=== PATIENT | male | born 1955 | race Hispanic/Latino ===

== ENCOUNTER 2017-05-05 09:58 | Day surgery (SDC) | payer BC ==
[2017-01-10 21:57] VITALS: BMI 28.1
[2017-05-04 11:24] VITALS: RESP 20
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
[2017-05-05] MEDS ORDERED: Phenylephrine 10 mg/ml Inj ONE (10:56)
[2017-05-05] MEDS ORDERED: Propofol 10 mg/ml Inj (20 ML) ONE ×2 (11:16→13:06)
[2017-05-05] MEDS ORDERED: Succinylcholine 200 mg/10 ml Inj IV ONE (11:16)
[2017-05-05] MEDS ORDERED: Ropivacaine 0.5% 30ML IV ONE (12:04)
[2017-05-05] MEDS ORDERED: Midazolam 2 MG/2 ML VIAL ONE (12:05)
[2017-05-05] MEDS ORDERED: Lidocaine 1% Inj (20ml) ONE ×2 (12:17→15:48)
[2017-05-05] MEDS ORDERED: Bupivacaine 0.5% Inj(30mL) ONE (12:17)
[2017-05-05] MEDS ORDERED: Lactated Ringer's 1,000 ML IV ONE ×3 (12:32→16:15)
[2017-05-05] MEDS ORDERED: ePHEDrine 50 mg/ml Inj ONE (12:57)
[2017-05-05] MEDS ORDERED: Bupivacaine 0.5% 50 ML IJ ONE (14:40)
[2017-05-05] MEDS ORDERED: Oxycodone/Acetaminophen 5/325 mg Tab PO PRN ×2 (15:30)
[2017-05-05] MEDS ORDERED: HYDROmorphone 0.5 mg/0.5 ml ISec IVP PRN (15:32)
--- NOTE | 2017-05-05 15:38 | PCM.SURG1 ---
Surgeon's Initial Post Op Note - Surgeon's Notes Surgeon: Dr. Traore Hammer Smith: Dr. Baxter, Dr. Willis, Dr. Daniel Type of Anesthesia: General LMA, Local Anesthesia Administered By: Dr. Tamez Pre-Operative Diagnosis: left achilles rupture Operative Findings: see dictations; materials: 2-0 fiberwire, 3-0 vicryl, 4-0 vicryl, 4-0 monocryl PRP injection, 1 athroflex graft, 2 3-0 suturetak, intraoperative injectables: 10cc of .5% marcaine plain Post-Operative Diagnosis: same Operation Performed: left achilles rupture repair with application of graft and PRP Specimen/Specimens Removed: degenerative achilles Estimated Blood Loss: EBL {In ML}: 10 Blood Products Given: N/A Drains Used: No Drains Post-Op Condition: Good Date of Surgery/Procedure: 05/05/17 Time of Surgery/Procedure: 12:00
[2017-05-05] MEDS ORDERED: Lactated Ringer's 1,000 ML IV SCH (15:45)
--- NOTE | 2017-05-05 16:58 | CP.PCM.HP ---
History of Present Illness - History of Present Illness History of Present Illness: Mr. Jhon Cardenas is a 61 yo male with PMH significant for type 2 diabetes. He underwent Achilles tendon repair today. He reports that on 04/13 he stepped off a curb and heard a pop; then went to see his multifold operator who ordered an MRI which showed left achilles rupture. He was referred to Dr. Traore for surgery. He states that he could walk prior to surgery but felt pain while using stairs. PMD: Dr. Best in [place] PMH: DM2. He denies hx denies hypertension or hyperlipidemia PSurg Hx: right knee meniscus repair Social hx: Denies smoking tobacco, drinks glass of wine several times a month, denies illicit drug use. Family hx: mother of breast cancer at age 62, father of lung cancer at age 53, both were group home heavy smokers. Father also had DM2. Medications: Januvia 100 mg daily, Glipizide 10 mg daily Allergies: ramipril- swollen lips/ likelyangioedema to all CACHORRO inhibitors Next of kin: sister Amara [phone] Code status: full code Present on Admission - Present on Admission Any Indicators Present on Admission: No Review of Systems - Constitutional Constitutional: absent: Chills, Fever, Headache - EENT Eyes: absent: Change in Vision - Cardiovascular Cardiovascular: absent: Chest Pain, Dyspnea on Exertion, Edema, Palpitations - Respiratory Respiratory: absent: Cough, Dyspnea, Wheezing - Gastrointestinal Gastrointestinal: absent: Abdominal Pain, Change in Bowel Habits, Constipation, Loose Stools, Melena, Nausea, Vomiting - Genitourinary Genitourinary: absent: Change in Urinary Stream, Difficulty Urinating, Dysuria, Hematuria, Urinary Frequency - Musculoskeletal Musculoskeletal: As Per HPI. absent: Arthralgias, Myalgias, Numbness - Integumentary Integumentary: absent: Erythema, Rash Past Patient History - Infectious Disease Hx of Infectious Diseases: None - Past Medical History & Family History Past Medical History?: Yes Pertinent Family History: as per HPI - Past Social History Smoking Status: Never Smoked Alcohol: Occasional Drugs: Denies - CARDIAC Hx Cardiac Disorders: No - PULMONARY Hx Respiratory Disorders: No - NEUROLOGICAL Hx Neurological Disorder: No - HEENT Hx HEENT Problems: No - RENAL Hx Chronic Kidney Disease: No - ENDOCRINE/METABOLIC Hx Endocrine Disorders: Yes Hx Diabetes Mellitus Type 2: Yes - HEMATOLOGICAL/ONCOLOGICAL Hx Blood Disorders: No Hx Blood Transfusions: No - INTEGUMENTARY Hx Dermatological Problems: No - MUSCULOSKELETAL/RHEUMATOLOGICAL Hx Musculoskeletal Disorders: No Hx Falls: No - GASTROINTESTINAL Hx Gastrointestinal Disorders: No - GENITOURINARY/GYNECOLOGICAL Hx Genitourinary Disorders: No - PSYCHIATRIC Hx Emotional Abuse: No Hx Physical Abuse: No - SURGICAL HISTORY Hx Surgeries: Yes Hx Arthroscopy: Yes (meniscus tear repair right [id number]) Other/Comment: right knee - ANESTHESIA Hx Anesthesia: Yes Hx Anesthesia Reactions: No Hx Malignant Hyperthermia: No Has any member of the family had a problem w/ anesthesia?: No Meds Allergies/Adverse Reactions: Allergies Allergy/AdvReac Type Severity Reaction Status Date / Time ramipril Allergy RASH Verified 05/05/17 11:03 Physical Exam - Constitutional Appears: Non-toxic, No Acute Distress - Eye Exam Eye Exam: EOMI, Normal appearance, PERRL. absent: Conjunctival injection, Scleral icterus - ENT Exam ENT Exam: Mucous Membranes Moist - Neck Exam Neck exam: Positive for: Full Rom. Negative for: Lymphadenopathy, Thyromegaly - Respiratory Exam Respiratory Exam: Clear to Auscultation Bilateral, NORMAL BREATHING PATTERN. absent: Wheezes, Respiratory Distress - Cardiovascular Exam Cardiovascular Exam: REGULAR RHYTHM, +S1, +S2 - GI/Abdominal Exam GI & Abdominal Exam: Normal Bowel Sounds, Soft. absent: Distended, Guarding, Tenderness - Extremities Exam Additional comments: LLE in splint/bandage; pt s/p popliteal block RLE 5/5 strength 5/5 strength bilateral upper extremities - Neurological Exam Neurological exam: Alert, Oriented x3 - Psychiatric Exam Psychiatric exam: Normal Mood - Skin Skin Exam: Dry, Warm Results - Vital Signs Recent Vital Signs: Last Vital Signs Temp 97.8 F 05/05/17 10:22 Pulse 82 05/05/17 10:54 Resp 20 05/05/17 10:22 BP 139/81 05/05/17 10:22 Pulse Ox 99 05/05/17 10:22 - Labs Labs: Laboratory Results - last 24 hr 05/05/17 05/05/17 10:36 15:33 POC Glucose (mg/dL) 162 H 183 H Assessment & Plan - Assessment and Plan (Free Text) Assessment: 61 yo M with PMH DM2, s/p repair of left achilles tendon today. Pt is s/p popliteal block, and unsafe to go home at this time. Plan: # S/p Left Achilles Tendon Repair; POD 0 - post-op orders as per podiatry including antibiotics and pain control # Diabetes Mellitus, Type 2 - Hold home meds # DVT prophylaxis - Lovenox ordered by podiatry
--- NOTE | 2017-05-05 17:07 | PCM.ANESB2 ---
Popliteal Nerve Block - Popliteal Nerve Block Date of Procedure: 05/05/17 Anesthesiologist: Kenji Osborne M.D. Pre-Procedure Diagnosis: Rupture of left achilles tendon Post-Procedure Diagnosis: Repair of ruptured left achilles tendon Procedure Performed: Popliteal Nerve Block Left - Procedure Popliteal Nerve Block: This procedure was explained to the patient that it is for post-operative pain management. Consent was obtained after a thorough discussion with the patient regarding the benefits and possible complications of local anesthetic block of the sciatic nerve at the popliteal level. After the operation the patient was brought to the pacu where the left popliteal nerve block was done. The ultrasound transducer was then applied to the posterior thigh approximately 8cm above the popliteal crease in the transverse plane and the sciatic nerve before its division was visualized lateral to the popliteal artery and in between the bicep femoris and semimembranosus/semitendinosus muscles. After identification, the lateral portion of the thigh was prepped with Betadine solution three times and Lidocaine 1% was injected subcutaneously for topical anesthesia. At this point, a # 21 gauge Stimuplex insulated 4 inch needle was inserted into pre-marked area and advanced in a perpendicular direction. The needle was inserted above the ultrasound transducer in-plane towards the sciatic nerve in a [id number] direction. Needle advancement was performed carefully under direct ultrasound visualization. Nerve stimulator was used and dorsiflexion of the left foot was elicited at a current of _.4____ MA. After repeated negative aspiration, _20____cc of __.5___ % _ropivacine was injected . _. Under ultrasound guidance the local anesthetics were observed surrounding sciatic nerve . The needle was removed intact and sterile dressing was applied. The patient tolerated the popliteal nerve block well with stable vital signs and was subsequently prepared for the surgery.
[2017-05-05] MEDS ORDERED: Influenza Vaccine 18yr & older 0.5 ML/45 MCG SYR IM ONE (18:24)
[2017-05-05] MEDS ORDERED: Pneumococcal 23-Valent Vaccine IM ONE (18:24)
[2017-05-05] MEDS: Enoxaparin 40 mg Syringe SC SCH (21:28)
[2017-05-06] MEDS: ceFAZolin IV 1 gm in Dextrose 1 GM/50 ML BAG IVPB SCH ×2 (00:44→13:14)
[2017-05-06 05:54] VITALS: O2SAT 96
--- NOTE | 2017-05-06 07:31 | CP.PCM.DIS ---
Provider - Provider Date of Admission: 05/05/17 15:41 Attending physician: Nimco Conner MD Primary care physician: Cami Best MD Consults: Podiatry Time Spent in preparation of Discharge (in minutes): 30 Diagnosis - Discharge Diagnosis (1) S/P Achilles tendon repair Status: Acute Comment: Pt underwent LEFT achilles tendon repair by podiatry team yesterday. Tolerated procedure well and has been stable. He had left popliteal block yesterday as well, and sensation returned to extremity this am. To follow up with podiatry as per podiatry instructions. Hospital Course - Lab Results Lab Results: Most Recent Lab Values POC Glucose (mg/dL) 137 mg/dL (65-110) H 05/06/17 05:59 - Hospital Course Hospital Course: 61 yo M with H diabetes mellitus 2 was admitted for left achilles tendon repair by Dr. Traore and podiatry team. He also had popliteal block by anesthesia post-operatively. Sensation returned to extremity this am, and pt is able to wiggle all 5 toes, sensation intact. Voiding, tolerating diet. Stable for discharge from podiatry and medical perspective. To resume diabetic home meds at home; post operative medications/instructions/followup as per podiatry. Pt to follow up with private PMD in [place] for management of chronic medical conditions. Discharge Exam - Eye Exam Eye Exam: EOMI, Normal appearance - ENT Exam ENT Exam: Mucous Membranes Moist - Respiratory Exam Respiratory Exam: Clear to PA & Lateral, NORMAL BREATHING PATTERN. absent: Wheezes, Respiratory Distress - Cardiovascular Exam Cardiovascular Exam: RRR, +S1, +S2 - GI/Abdominal Exam GI & Abdominal Exam: Normal Bowel Sounds, Soft, Unremarkable - Extremities Exam Additional comments: Left lower extremity in cast Cast is clean, dry, intact Able to wiggle all 5 toes Sensation intact - Neurological Exam Neurological exam: Alert, Oriented x3 - Psychiatric Exam Psychiatric exam: Normal Affect, Normal Mood - Skin Skin Exam: Dry, Normal Color, Warm Discharge Plan - Follow Up Plan Condition: GOOD Disposition: HOME/ ROUTINE Instructions: Achilles Tendon Rupture (DC), Tendon Repair (DC) Additional Instructions: -Patient in good/stable condition -Resume DM diet Please keep dressing clean, dry, & intact to surgical site; do not get wet -Use plastic bag over bandage for showering -Patient to nonweightbear in left cast with ambulatory device (crutches/rolling scooter) -Call clinic if you see signs of infection (redness, swelling, malodor) -Please make an appointment to see Dr. Traore in office/clinic within 1 week for post-op check -Follow up with your PMD Dr. Best in [place] for medical care/management of chronic medical conditions. Referrals: Cami Best MD [Primary Care Provider] - Alex Traore MD [Staff Provider] -
[2017-05-06 08:07] VITALS: BP 123/70; PULSE 91; TEMP 98.2
[2017-05-06] MEDS ORDERED: Succinylcholine 200 mg/10 ml Inj IV ONE (08:08)
[2017-05-06] MEDS ORDERED: Phenylephrine 10 mg/ml Inj ONE (08:08)
--- NOTE | 2017-05-06 09:08 | CP.PCM.PN ---
Subjective - Date & Time of Evaluation Date of Evaluation: 05/06/17 Time of Evaluation: 08:30 - Subjective Subjective: Podiatry Progress Note- Dr. Traore 61 y.o with PMH of Type II DM 1 day s/p left achilles rupture repair with application of graft and PRP injection. Patient is seen resting comfortably in bed, in NAD, and AA0x3. Reports that he is doing well. Patient denies acute overnight events. Patient reports that the anesthesia wore off at 5am this morning and starting to feel pain. He reports able to wiggle toes, and pain 7/10 , most at the posterior heel. Patient denies calf pain or tenderness. Denies nausea, fever, shortness of breath, chest pain, chills, fever or diarrhea. Objective - Vital Signs/Intake and Output Vital Signs (last 24 hours): Temp Pulse Resp BP Pulse Ox 98.2 F 91 H 20 123/70 96 05/06/17 08:07 05/06/17 08:07 05/06/17 08:07 05/06/17 08:07 05/06/17 08:07 - Medications Medications: Current Medications Acetaminophen (Tylenol 325mg Tab) 325 mg PO Q4 PRN PRN Reason: Pain, Mild (1-3) Enoxaparin Sodium (Lovenox) 40 mg SC DAILY [facility] PRN Reason: Protocol Last Admin: 05/05/17 21:28 Dose: 40 mg Hydromorphone HCl (Dilaudid) 0.5 mg IVP Q15M PRN PRN Reason: Pain, moderate (4-7) Stop: 05/06/17 15:33 Cefazolin Sodium/Dextrose (Ancef Iv 1 Gm Duplex) 1 gm in 50 mls @ 50 mls/hr IVPB Q12H [facility]ICKY PRN Reason: Protocol Last Admin: 05/06/17 00:44 Dose: 50 mls/hr Lactated Ringer's (Lactated Ringer's) 1,000 mls @ 100 mls/hr IV .Q10H [facility] Last Admin: 05/06/17 00:46 Dose: 100 mls/hr Oxycodone/Acetaminophen (Percocet 5/325 Mg Tab) 1 tab PO Q4 PRN PRN Reason: Pain, moderate (4-7) Stop: 05/08/17 15:31 Oxycodone/Acetaminophen (Percocet 5/325 Mg Tab) 2 tab PO Q4 PRN PRN Reason: Pain, severe (8-10) Stop: 05/08/17 15:31 - Constitutional Appears: Well, Non-toxic, No Acute Distress - Extremities Exam Extremities Exam: absent: Calf Tenderness Additional comments: Left focused examination: Cast c/d/i CFT < 3 seconds x 5 digits, temperature WNL able to wiggle toes sensation intact, slightly diminished secondary to neuropathy - Neurological Exam Neurological Exam: Alert, Awake, Oriented x3 - Psychiatric Exam Psychiatric exam: Normal Affect, Normal Mood Assessment and Plan - Assessment and Plan (Free Text) Assessment: 61 y.o with PMH of Type II DM 1 day s/p left achilles rupture repair with application of graft and PRP injection- stable Plan: - Patient examined and evaluated - Discussed plan in detail with attending Dr. Traore - Vitals and chart reviewed - Patient in good/stable condition - Please keep dressing clean, dry, & intact to surgical site; do not get wet - Use plastic bag over bandage for showering - Patient to nonweightbear in left cast with ambulatory device (crutches/ rolling walker) - Call office if you see signs of infection (redness, swelling, malodor) - F/u with Dr. Traore in office on Wednesday - Patient was given antibiotics and pain medications script in Dr. Traore office. Take as prescribed - Instructed patient to take baby aspirin 81mg daily for 7 days after discharge. - Rx rolling walker - Post operative instructions and plan of care explained to patient at length. - Pt. acknowledges understanding. - Patient is stable per podiatry standpoint for discharge
[2017-05-06] MEDS: Enoxaparin 40 mg Syringe SC SCH (09:14)
--- NOTE | 2017-05-09 15:57 | PCM.OP ---
Operative Report - Operative Report Date of Surgery/Procedure: 05/05/17 Time of Surgery/Procedure: 12:30 Surgeon: Dr. Traore Sand Blaster: Corky Baxter PGY-3, Tomeka Calvillo PGY-2, Susie Daniel PGY-1 Anesthesia/Sedation: General LMA and Regional block Pre-Operative Diagnosis: Left lower extrmeity Achilles tendon rupture Post-Operative Diagnosis: Same Indication for Surgery: The patient is a 61 year-old M with the above diagnoses. The patient has exhausted conservative treatment at this time and now requests surgical intervention. The patient signed the consent after careful explanation of risks, benefits, complication and alternatives for surgical procedure. No guarantees were given nor implied. 2 grams Ancef IV were given to the pt hour prior to the procedure. NPO status was confirmed prior to taking pt to the OR. Operative Findings: Preparation: The patient was brought to the operating room and placed on the operating room table in prone position. A well-padded pneumatic Thigh tourniquet was placed to the patient's Left Thigh. Once general anesthesia was achieved, the left lower extremity was then prepped and draped in usual sterile manner. Esmarch was utilized to exsanguinate the patient's Left lower extremity. Pneumatic Thigh tourniquet was then inflated to 350 mmHg and procedure began. Procedure/Operation Description: #1. Left lower extremity Achilles tendon repair with Arthrex allograft Attention was directed to the posterior aspect of the left lower extremity where a palpable dell 4 cm proximal to the Achilles tendon insertion. Utilizing #15 blade, Approximately 12 cm linear longitudinal incision was made along the midline of the Achilles tendon extending distally to the inferior aspect of the posterior calcaneus. The incision was ten carried down through the subcutaneous tissue with care being taken to identify and retract all vital and neurovascular structures. All bleeders were cauterized and ligated as necessary. The incision was then deepened down to the level of the paratenon and the Achilles tendon. Upon dissection, there was noted to be complete rupture of the Achilles tendon 5 cm proximal to the Achilles tendon insertion and the gap was approximately more than 6 cm. Next, utilizing #15 blade, The scar tissue at the edge of the Achilles tendon were debrided and resected and passed off of the operative frank and sent to pathology. Next, The periosteal tissue attached to the calcaneus was the freed of its attachment and resected. Next, two of 3.0 mm Arhtrex sututre taks were placed medially and laterally to the midline of the Achilles insertion on the posterior aspect of the Calcaneus. The suture anchors was re approximated in a running inter locking pattern proximally to the Achilles tendon. Next, Utilizing Arthrex ArthroFlex graft was applied around the Achilles tendon and wrapped it around the ruptured area and fixated with #2-0 Fiber wire. The wound site was flushed with copious amount of normal sterile saline. #3. Platelet sushil plasma graft application to the left ankle Approximately 60cc of the patients own blood was harvested from the Hep-Lock. The 60cc of autologous blood was placed in the Centrifuge system which was added with an anticoagulant and centrifuged down to yield approximately 5cc of platelet rich plasma and memebrane. The platelet rich plasma solution and membrane were applied to the reutured Achiiles tendon left lower extremity. Deep tissue was reapproximated with #2-0 Vicryl, subcutaneous tissue was reapproximated with #4-0 Vicryl. Skin was reapproximated with #4-0 Monocryl. Steri-strips were now applied to the incision. All surgical sites were then infiltrated with a total of 10cc of 0.5% Marcaine plain. All sites were now dressed with moist 4x4 gauze, dry 4x4 gauze, tara and posterior splint. The attending was present during the case. Estimated Blood Loss: 10cc Complications: None Discharge & Condition: The patient tolerated the anesthesia and procedure well and was escorted to the recovery room with vital signs stable and neurovascular status intact to the left lower extremity. This patient will follow up with
== END 2017-05-06 13:20 | disposition home or self-care (01) ==
LOC: H.OPSURG 09:58 → UNDOADMOB 15:41 → H.MEDSURG1 15:41 → H.OPSURG 18:09
PROVIDERS: ATTEND Family Medicine Geriatric Medicine
DX: S86.019A Strain of unspecified Achilles tendon, initial encounter (principal); E11.9 Type 2 diabetes mellitus without complications; X58.XXXA Exposure to other specified factors, initial encounter
CPT/HCPCS: 27650; 82948; 88305; 90732; 97161; C1713; G0008; G0009; G8978; G8979; G8980; J0330; J0690; J1650; J2001; J2250; J2370; J2405; J2704; J2765; J3010; J7030; J7120; Q2035; Q4125